=== PATIENT | female | born 1990 | race Caucasian/White ===

== ENCOUNTER 2021-01-21 09:37 | Inpatient (IN) | payer OTHER ==
[2021-01-21 10:21] VITALS: BMI 27.2
[2021-01-21] MEDS ORDERED: ELECTROLYTE-148 SOLN 500 ML IV ONE ×2 (11:10→13:26)
[2021-01-21] MEDS ORDERED: ONDANSETRON 4 MG/2 ML VIAL ONE ×2 (11:15→17:22)
[2021-01-21] MEDS ORDERED: ONDANSETRON 4 MG/2 ML VIAL IVPB ONE (11:18)
[2021-01-21] MEDS ORDERED: CITRIC ACID/SODIUM CITRATE 30 ML UNIT-DOSE CUP PO ONE (11:18)
[2021-01-21] MEDS ORDERED: ELECTROLYTE-148 SOLN 1,000 ML IV SCH ×2 (11:40→13:30)
[2021-01-21] MEDS ORDERED: morphine SULFATE/PF 1 MG/2 ML (2cc Syringe - QUVA) EP ONE (16:34)
[2021-01-21] MEDS ORDERED: morphine SULFATE (PF) 1 MG/2 ML SYRINGE ONE (16:45)
[2021-01-21] MEDS ORDERED: MEPERIDINE HCL 50 MG/ML VIAL ONE (17:23)
[2021-01-21] MEDS ORDERED: IBUPROFEN 800 MG/8 ML IJ IVPB PRN (17:50)
[2021-01-21] MEDS ORDERED: METHYLERGONOVINE MALEATE 0.2 MG/1 ML AMP IM PRN (17:50)
[2021-01-21] MEDS ORDERED: ACETAMINOPHEN 325 MG TABLET (FP) PO PRN (17:50)
[2021-01-21] MEDS ORDERED: oxyCODONE HCL 5 MG TABLET PO PRN ×2 (17:50)
[2021-01-21] MEDS ORDERED: OXYTOCIN 20 UNITS in 0.9% NS 20 UNIT/1,000 ML INFUS.BAG IV SCH (18:00)
[2021-01-21] MEDS ORDERED: OXYTOCIN 20 UNITS in 0.9% NS 20 UNIT/1,000 ML INFUS.BAG IV ONE (18:24)
[2021-01-22] MEDS ORDERED: ONDANSETRON 4 MG/2 ML VIAL IVPUSH PRN (05:34)
[2021-01-22 07:52] LABS: BASO % 0.2 % (0-2.0); EOS % 0.1 % (0-4.5); HEMATOCRIT 29.3 % (32.4-45.2); HEMOGLOBIN 10.1 GM/dL (10.7-15.3); MCHC 34.6 g/dl (32.0-36.0); MEAN CELL VOLUME 92.3 fl (80-96); MEAN PLT VOLUME 9.9 fl (7.5-11.1); MONO % 6.8 % (3.8-10.2); NEUT % 81.9 % (42.8-82.8); PLATELET COUNT 247 10^3/uL (134-434); RBC 3.17 M/mm3 (3.60-5.2); RDW 13.3 % (11.6-15.6); WHITE BLOOD COUNT 12.8 K/mm3 (4.0-10.0)
[2021-01-22] MEDS: IBUPROFEN 600 MG TABLET (FP) PO PRN ×3 (09:35→22:26)
[2021-01-22] MEDS: SIMETHICONE 80 MG TAB.CHEW (FP) PO PRN ×2 (09:36→15:50)
[2021-01-22] MEDS ORDERED: BISACODYL 10 MG SUPP.RECT RC PRN (17:50)
[2021-01-22] MEDS: SENNOSIDES/DOCUSATE COMBO (SENNA PLUS) TABLET (UD) PO PRN (22:26)
[2021-01-23] MEDS: IBUPROFEN 600 MG TABLET (FP) PO PRN ×3 (10:00→23:37)
[2021-01-23] MEDS: SIMETHICONE 80 MG TAB.CHEW (FP) PO PRN ×2 (10:00→23:37)
[2021-01-23] MEDS: SENNOSIDES/DOCUSATE COMBO (SENNA PLUS) TABLET (UD) PO PRN (16:36)
[2021-01-24] MEDS: IBUPROFEN 600 MG TABLET (FP) PO PRN (09:19)
[2021-01-24] MEDS: SIMETHICONE 80 MG TAB.CHEW (FP) PO PRN (09:19)
[2021-01-24] MEDS ORDERED: DIPHTH,PERTUSS(ACELL),TET 0.5 ML DISP.SYRIN IM ONE (10:00)
[2021-01-24] MEDS ORDERED: FLU VACC QS2021-22(6MOS UP)/PF 60 MCG/0.5 ML SYRINGE IM ONE (10:00)
[2021-01-24 10:10] VITALS: BP 114/75; PULSE 83; TEMP 97.9
== END 2021-01-24 12:10 | disposition home or self-care (01) | DRG 788 ==
LOC: JLDR 09:37 → J3W 21:14
PROVIDERS: ADMIT Obstetrics & Gynecology; ATTEND Obstetrics & Gynecology
PROC: 10D00Z1 Extraction of Products of Conception, Low, Open Approach (ICD-10-PCS; principal; 2021-01-21)
DX: O66.40 Failed trial of labor, unspecified (principal); Z3A.39 39 weeks gestation of pregnancy; Z37.0 Single live birth
CPT/HCPCS: 36415; 85025; 88307-TC; 90686; 90715; G0008; J2175